=== PATIENT | male | born 1975 | race Hispanic/Latino ===

== ENCOUNTER 2017-02-05 10:08 | Emergency (ER) | payer SELFPAY ==
[2017-02-05 10:29] VITALS: BP 124/83
[2017-02-05 13:24] LABS: Bilirubin,Urine NEG (Negative); Blood,Urine LG (Negative); Ketones,Urine TR mg/dL (Negative); Leukocyte Esterase,Urine NEG (Negative); Nitrite,Urine NEG (Negative); Urobilinogen,Urine < 2.0 mg/dL (<2.0)
== END 2017-02-05 15:35 | disposition left against medical advice (07) ==
LOC: ED 10:08
DX: R10.30 Lower abdominal pain, unspecified (principal); Z53.21 Procedure and treatment not carried out due to patient leaving prior to being seen by health care provider
CPT/HCPCS: 81001

== ENCOUNTER 2020-03-25 03:17 | Emergency (ER) | payer MEDICAID, OTHER ==
[2020-03-25 04:23] LABS: Basophils # (Auto) 0.1 K/mm3 (0.0-0.1); Basophils % (Auto) 1.1 % (0.0-1.8); Eosinophils # (Auto) 0.1 K/mm3 (0.0-0.4); Eosinophils % (Auto) 1.4 % (0.0-4.3); Hematocrit 37.8 % (35.5-45.6); Hemoglobin 12.8 gm/dl (11.8-15.2); Lymphocytes # (Auto) 1.5 K/mm3 (1.2-5.4); Mean Corpuscular HGB Conc 34 % (32-34); Mean Corpuscular Volume 93 fl (84-94); Monocytes # (Auto) 0.9 K/mm3 (0.0-0.8); Monocytes % (Auto) 9.2 % (0.0-7.3); Platelet Count 268 K/mm3 (140-440); Red Blood Count 4.06 M/mm3 (3.65-5.03); Red Cell Distribution Width 14.2 % (13.2-15.2)
[2020-03-25 04:42] LABS: BUN/Creatinine Ratio 10; Blood Urea Nitrogen 10 mg/dL (9-20); Calcium 9.2 mg/dL (8.4-10.2); Hemolysis Index 33
[2020-03-25 04:44] LABS: Creatine Kinase MB 1.2 ng/mL (0.0-4.0)
[2020-03-25] MEDS ORDERED: SODIUM CHLORIDE 0.9% 1000 ML 1,000 ML ONE (04:52)
[2020-03-25] MEDS ORDERED: SODIUM CHLORIDE 0.9% 1000 ML 1,000 ML IV ONE (05:02)
--- NOTE | 2020-03-25 05:24 | Emergency Department Report ---
ED General Adult HPI - General Chief complaint: Hyperglycemia Stated complaint: HYPERGLYCEMIA Time Seen by Provider: 03/25/20 04:53 Source: patient, EMS Mode of arrival: Stretcher Limitations: No Limitations - History of Present Illness Initial comments: 44-year-old male with a new diagnosis of insulin-dependent diabetes 2 to 3 weeks early months ago while he was incarcerated presents emerged department complaining of a 1 to 2-day history of nausea associated with dizziness chills sweats headache and occasional blurred vision. Ports no chest pain or palpitations. No fevers, abdominal pain, vomiting, constipation, diarrhea, hemoptysis, hematemesis, hematochezia. No palpitations. Severity scale (0 -10): 0 - Related Data Home Medications Medication Instructions Recorded Confirmed Last Taken Insulin Glargine,Hum.rec.anlog 26 unit SQ DAILY 03/25/20 03/25/20 Unknown [Basaglar Kwikpen U-100] Insulin Regular, Human [Novolin R] 5 units SQ DAILY 03/25/20 03/25/20 Unknown Allergies Allergy/AdvReac Type Severity Reaction Status Date / Time No Known Allergies Allergy Verified 08/28/18 01:57 ED Review of Systems ROS: Stated complaint: HYPERGLYCEMIA Other details as noted in HPI Comment: All other systems reviewed and negative ED Past Medical Hx - Past Medical History Previous Medical History?: Yes Hx Diabetes: Yes (Newly Diagnosed) - Social History Smoking Status: Current Every Day Smoker - Medications Home Medications: Home Medications Medication Instructions Recorded Confirmed Last Taken Type Insulin Glargine,Hum.rec.anlog 26 unit SQ DAILY 03/25/20 03/25/20 Unknown History [Basaglar Kwikpen U-100] Insulin Regular, Human [Novolin R] 5 units SQ DAILY 03/25/20 03/25/20 Unknown History ED Physical Exam - General Limitations: No Limitations General appearance: alert, in no apparent distress - Head Head exam: Present: atraumatic, normocephalic - Eye Eye exam: Present: normal appearance, PERRL, EOMI. Absent: nystagmus, other Pupils: Present: normal accommodation - ENT ENT exam: Present: normal exam, normal orophraynx, mucous membranes moist, TM's normal bilaterally - Neck Neck exam: Present: normal inspection, tenderness, full ROM. Absent: lymphadenopathy, thyromegaly - Respiratory Respiratory exam: Present: normal lung sounds bilaterally. Absent: respiratory distress, wheezes, rales, chest wall tenderness, accessory muscle use - Cardiovascular Cardiovascular Exam: Present: regular rate, normal rhythm, normal heart sounds. Absent: bradycardia, tachycardia, systolic murmur, diastolic murmur, rubs, gallop - GI/Abdominal GI/Abdominal exam: Present: soft, normal bowel sounds. Absent: distended, tenderness, guarding - Rectal Rectal exam: Present: deferred - Extremities Exam Extremities exam: Present: normal inspection, normal capillary refill - Back Exam Back exam: Present: normal inspection. Absent: CVA tenderness (R), CVA tenderness (L) - Neurological Exam Neurological exam: Present: alert, oriented X3, CN II-XII intact, normal gait - Psychiatric Psychiatric exam: Present: normal affect, normal mood - Skin Skin exam: Present: warm, dry, intact, normal color. Absent: rash ED Course Vital Signs 03/25/20 03/25/20 03/25/20 03:42 04:03 04:35 Temperature 97.5 F L Pulse Rate 86 77 Respiratory 20 20 20 Rate Blood Pressure 112/71 Blood Pressure 111/72 [Right] O2 Sat by Pulse 96 96 97 Oximetry ED Medical Decision Making - Lab Data Result diagrams: 03/25/20 04:10 03/25/20 04:10 - Radiology Data Radiology results: [place] [address] Cat Scan Report Signed Patient: COLEMAN GORDON JR MR#: [id number] : 1975 Acct:[id number] Age/Sex: 44 / M ADM Date: 03/25/20 Loc: ED Attending Dr: Ordering Physician: YUMI JOAQUIN Date of Service: 03/25/20 Procedure(s): CT head/brain wo con Accession Number(s): [id number] cc: YUMI JOAQUIN Examination: CT of the head without contrast Clinical information: Headache. Dizziness. Comparison: None Technical: Multiple axial CT images of the head were obtained without intravenous contrast. Sagittal and coronal reformats were obtained. All CTs at this facility utilize dose reduction techniques including automated exposure control, iterative reconstruction and weight based dosing when appropriate to reduce patient radiation dose to as low as reasonable achievable. Findings: There is no CT evidence of acute intracranial hemorrhage or large territorial infarct. The ventricular system is normal in size. There is no evidence of mass effect or midline shift. No extra-axial fluid collections are identified. Evaluation of the calvarium demonstrates no evidence of acute bony abnormality. The visualized paranasal sinuses and mastoid air cells are clear Impression: 1. No CT evidence of acute intracranial process. Signer Name: Arabella Shepard MD Signed: 03/25/2020 5:30 AM Workstation Name: [id number] Transcribed By: EB Dictated By: Arabella Shepard MD Electronically Authenticated By: Arabella Shepard MD Signed Date/Time: 03/25/20529 DD/ 7 TD/TT: Critical care attestation.: If time is entered above; I have spent that time in minutes in the direct care of this critically ill patient, excluding procedure time. ED Disposition Clinical Impression: Hyperglycemia, Dizziness Disposition: DC-01 TO HOME OR SELFCARE Is pt being admited?: No Does the pt Need Aspirin: No Condition: Stable Instructions: Dizziness (ED), Lightheadedness (ED), Diabetic Hyperglycemia (ED), Dehydration (ED) Additional Instructions: Please be sure to follow-up with your primary care provider for further evaluation of your hypoglycemia. Please remember to hydrate as there was no evidence of dehydration with your examination Referrals: TRISTON MYERS MD [Primary Care Provider] - 3-5 Days JOSSIE CA MD [Staff Physician] - 3-5 Days
--- NOTE | 2020-03-25 05:34 | Cat Scan Report ---
Examination: CT of the head without contrast Clinical information: Headache. Dizziness. Comparison: None Technical: Multiple axial CT images of the head were obtained without intravenous contrast. Sagittal and coronal reformats were obtained. All CTs at this facility utilize dose reduction techniques inc luding automated exposure control, iterative reconstruction and weight based dosing when appropriate to reduce patient radiation dose to as low as reasonable achievable. Findings: There is no CT evidence of acute intracranial hemorrhage or large territorial infarct. The ventricular system is normal in size. There is no evidence of mass effect or midline shift. No extra- axial fluid collections are identified. Evaluation of the calvarium demonstrates no evidence of acute bony abnormality. The visualized parana erin sinuses and mastoid air cells are clear Impression: 1. No CT evidence of acute intracranial process. Signer Name: Arabella Shepard MD Signed: 03/25/2020 5:30 AM Workstation Name: [id number]
[2020-03-25 07:43] VITALS: BP 128/78
== END 2020-03-25 07:44 | disposition home or self-care (01) ==
LOC: ED 03:17
DX: E11.65 Type 2 diabetes mellitus with hyperglycemia (principal); R42 Dizziness and giddiness; F17.200 Nicotine dependence, unspecified, uncomplicated; Z79.4 Long term (current) use of insulin
CPT/HCPCS: 36415; 70450; 80048; 82550; 82553; 82805; 84484; 85025; 93005; 96360; 96361; 99284; J7030

== ENCOUNTER 2020-10-15 00:51 | Emergency (ER) | payer MEDICAID ==
[2020-10-15 01:37] VITALS: BP 104/78
[2020-10-15 02:36] LABS: Basophils # (Auto) 0.1 K/mm3 (0.0-0.1); Basophils % (Auto) 1.1 % (0.0-1.8); Eosinophils # (Auto) 0.4 K/mm3 (0.0-0.4); Eosinophils % (Auto) 2.8 % (0.0-4.3); Hematocrit 43.4 % (35.5-45.6); Hemoglobin 14.6 gm/dl (11.8-15.2); Lymphocytes # (Auto) 3.7 K/mm3 (1.2-5.4); Lymphocytes % (Auto) 29.7 % (13.4-35.0); Mean Corpuscular HGB Conc 34 % (32-34); Mean Corpuscular Volume 92 fl (84-94); Monocytes # (Auto) 1.5 K/mm3 (0.0-0.8); Monocytes % (Auto) 11.6 % (0.0-7.3); Platelet Count 271 K/mm3 (140-440); Red Blood Count 4.73 M/mm3 (3.65-5.03); Red Cell Distribution Width 13.3 % (13.2-15.2)
[2020-10-15 02:47] LABS: Alanine Aminotransferase 19 units/L (7-56); Albumin 4.3 g/dL (3.9-5); BUN/Creatinine Ratio 14; Blood Urea Nitrogen 14 mg/dL (9-20); Calcium 10.5 mg/dL (8.4-10.2); Hemolysis Index 12
[2020-10-15] MEDS ORDERED: KETOROLAC 30 MG/1 ML INJ IV ONE (03:02)
--- NOTE | 2020-10-15 04:27 | Emergency Department Report ---
ED Extremity Problem HPI - General Chief complaint: Extremity Injury, Lower Stated complaint: MUSCLE CRAMPS Source: patient Mode of arrival: Ambulatory Limitations: No Limitations - History of Present Illness Initial comments: Patient is a 44-year-old white male with history of sth-swrvfoz-yvpfwbuhe diabetes who presents to the ED with complaint of acute onset persistent interm ittent bilateral lower extremity muscle spasm for the last 2 days. Patient states that the pain is intermittent and is not triggered by anything because it happens even at rest. Patient denies dizziness, syncope, chest pain, shortness of breath, nausea and vomiting, fever, chills, traumatic injury, heavy lifting, back pain, dizziness or change in vision. MD Complaint: extremity pain (Bilateral lower extremity muscle spasm) -: Sudden, hour(s) (12) Location: bilateral lower extremity History of Same: Yes -: Yes myalgia, Yes arthralgia Severity scale (0 -10): 7 Quality: aching, sharp Consistency: intermittent Improves with: rest Worsens with: weight bearing, walking Associated Symptoms: denies other symptoms, myalgias, arthralgias. denies: chest pain, fever - Related Data Home Medications Medication Instructions Recorded Confirmed Last Taken Insulin Glargine,Hum.rec.anlog 26 unit SQ DAILY 03/25/20 03/25/20 Unknown [Basaglar Kwikpen U-100] Insulin Regular, Human [Novolin R] 5 units SQ DAILY 03/25/20 03/25/20 Unknown Previous Rx's Medication Instructions Recorded Last Taken Type Cyclobenzaprine [Flexeril] 10 mg PO TID PRN #15 tablet 10/15/20 Unknown Rx Ibuprofen [Motrin] 600 mg PO Q8H PRN #30 tablet 10/15/20 Unknown Rx Allergies Allergy/AdvReac Type Severity Reaction Status Date / Time No Known Allergies Allergy Verified 08/28/18 01:57 ED Review of Systems ROS: Stated complaint: MUSCLE CRAMPS Other details as noted in HPI Constitutional: denies: chills, fever Eyes: denies: eye pain, eye discharge, vision change ENT: denies: ear pain, throat pain Respiratory: denies: cough, shortness of breath, wheezing Cardiovascular: denies: chest pain, palpitations Endocrine: no symptoms reported Gastrointestinal: denies: abdominal pain, nausea, diarrhea Genitourinary: denies: urgency, dysuria Musculoskeletal: arthralgia (Bilateral lower extremity muscle spasm), myalgia. denies: back pain, joint swelling Skin: denies: rash, lesions Neurological: denies: headache, weakness, paresthesias Psychiatric: denies: anxiety, depression Hematological/Lymphatic: denies: easy bleeding, easy bruising ED Past Medical Hx - Past Medical History Previous Medical History?: Yes Hx Diabetes: Yes (Newly Diagnosed) - Surgical History Past Surgical History?: No - Social History Smoking Status: Current Every Day Smoker Substance Use Type: None - Medications Home Medications: Home Medications Medication Instructions Recorded Confirmed Last Taken Type Insulin Glargine,Hum.rec.anlog 26 unit SQ DAILY 03/25/20 03/25/20 Unknown History [Basaglar Kwikpen U-100] Insulin Regular, Human [Novolin R] 5 units SQ DAILY 03/25/20 03/25/20 Unknown History Cyclobenzaprine [Flexeril] 10 mg PO TID PRN #15 tablet 10/15/20 Unknown Rx Ibuprofen [Motrin] 600 mg PO Q8H PRN #30 tablet 10/15/20 Unknown Rx ED Physical Exam - General Limitations: No Limitations General appearance: alert, in no apparent distress - Head Head exam: Present: atraumatic, normocephalic, normal inspection - Eye Eye exam: Present: normal appearance, PERRL, EOMI Pupils: Present: normal accommodation - ENT ENT exam: Present: normal exam, normal orophraynx, mucous membranes moist, TM's normal bilaterally, normal external ear exam - Neck Neck exam: Present: normal inspection, full ROM - Respiratory Respiratory exam: Present: normal lung sounds bilaterally. Absent: respiratory distress, wheezes, rales, chest wall tenderness, accessory muscle use - Cardiovascular Cardiovascular Exam: Present: regular rate, normal rhythm, normal heart sounds. Absent: systolic murmur, diastolic murmur, rubs, gallop - GI/Abdominal GI/Abdominal exam: Present: soft, normal bowel sounds. Absent: distended, tenderness, guarding, hyperactive bowel sounds, hypoactive bowel sounds, organomegaly - Extremities Exam Extremities exam: Present: normal inspection, full ROM, normal capillary refill. Absent: tenderness - Back Exam Back exam: Present: normal inspection, full ROM. Absent: tenderness, CVA tenderness (R), muscle spasm, vertebral tenderness - Neurological Exam Neurological exam: Present: alert, oriented X3, CN II-XII intact, normal gait, reflexes normal - Psychiatric Psychiatric exam: Present: normal affect, normal mood - Skin Skin exam: Present: warm, dry, intact, normal color. Absent: rash ED Course Vital Signs 10/15/20 01:36 Temperature 97.9 F Pulse Rate 99 H Respiratory 20 Rate Blood Pressure 104/78 O2 Sat by Pulse 96 Oximetry ED Medical Decision Making - Lab Data Result diagrams: 10/15/20 02:01 10/15/20 02:01 - Medical Decision Making This is a 44-year-old white male with history of rsm-kntybjb-exxgvgvgh diabetes who presents to the ED with complaint of acute onset persistent intermittent bilateral lower extremity muscle spasm for the last 2 days. Patient states that the pain is intermittent and is not triggered by anything because it happens even at rest. In the ED, patient is alert and oriented x3 and is not in distress. Lab test results were reviewed and are all nonactionable. Patient was treated for pain in the ED and was discharged home on pain medications and muscle relaxants and advised follow-up with his primary care physician in 7 to 10 days for reevaluation. Return to the ED immediately if symptoms get worse. - Differential Diagnosis Muscle spasm; muscle strain; tendinitis; osteoarthritis Critical care attestation.: If time is entered above; I have spent that time in minutes in the direct care of this critically ill patient, excluding procedure time. ED Disposition Clinical Impression: Muscle spasms of both lower extremities Disposition: DC-01 TO HOME OR SELFCARE Is pt being admited?: No Does the pt Need Aspirin: No Condition: Stable Instructions: Muscle Cramps and Spasms, [id number] Additional Instructions: Lab test results were reviewed and are all nonactionable. Therefore take medications with food, drink plenty of fluids and follow-up with your primary care physician in 7 to 10 days for reevaluation. Return to the ED immediately if symptoms get worse. Prescriptions: Cyclobenzaprine [Flexeril] 10 mg PO TID PRN #15 tablet PRN Reason: Muscle Spasm Ibuprofen [Motrin] 600 mg PO Q8H PRN #30 tablet PRN Reason: Pain Referrals: [facility] [Provider Group] - 3-5 Days Time of Disposition: 04:31 Print Language: KHMER
[2020-10-15 04:33] LABS: Bilirubin,Urine NEG (Negative); Blood,Urine NEG (Negative); Color,Urine Yellow (Yellow); Protein,Urine <15 mg/dL mg/dL (Negative); RBC,Urine < 1.0 /HPF (0.0-6.0); Urobilinogen,Urine < 2.0 mg/dL (<2.0)
== END 2020-10-15 04:35 | disposition home or self-care (01) ==
LOC: ED 00:51
DX: M62.838 Other muscle spasm (principal); E11.9 Type 2 diabetes mellitus without complications; F17.200 Nicotine dependence, unspecified, uncomplicated; Z79.4 Long term (current) use of insulin; Z79.899 Other long term (current) drug therapy
CPT/HCPCS: 36415; 80053; 81001; 85025; 96374; 99284; J1885

== ENCOUNTER 2021-07-25 17:57 | Emergency (ER) | payer MEDICAID ==
[2021-07-25] MEDS ORDERED: HYDROcodone/ACETAMINOPHEN 5-325 MG TAB PO ONE (18:42)
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
[2021-07-25] MEDS ORDERED: IBUPROFEN 800 MG TAB PO STA (18:44)
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
[2021-07-25] MEDS ORDERED: SODIUM CHLORIDE 0.9% 1000 ML 1,000 ML IV ONE ×2 (19:47)
[2021-07-25] MEDS ORDERED: LACTATED RINGERS 3,000 ML IV ONE (20:06)
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
[2021-07-25] MEDS ORDERED: SODIUM CHLORIDE IRRI 500 ML 500 ML IR ONE (20:29)
--- NOTE | 2021-07-25 20:57 | XRay Report ---
RIGHT HAND 3 VIEW(S) INDICATION / CLINICAL INFORMATION: dog bite to right hand COMPARISON: None available. FINDINGS: BONES / JOINT(S): No acute fracture or subluxation. No significant arthritis. SOFT TISSUES: Small amount of soft tissue gas on the dorsum of the hand. No radiopaque foreign body. ADDITIONAL FINDINGS: None. Signer Name: Marcia Angeles MD Signed: 07/25/2021 8:53 PM Workstation Name: [id number]
[2021-07-25 21:04] LABS: Alanine Aminotransferase 37 units/L (7-56); BUN/Creatinine Ratio 13; Blood Urea Nitrogen 13 mg/dL (9-20); Calcium 9.2 mg/dL (8.4-10.2); Hemolysis Index 5
[2021-07-25 21:19] LABS: Basophils # (Auto) 0.1 K/mm3 (0.0-0.1); Basophils % (Auto) 1.1 % (0.0-1.8); Eosinophils # (Auto) 0.2 K/mm3 (0.0-0.4); Eosinophils % (Auto) 1.7 % (0.0-4.3); Hematocrit 38.6 % (35.5-45.6); Hemoglobin 13.1 gm/dl (11.8-15.2); Lymphocytes # (Auto) 1.5 K/mm3 (1.2-5.4); Lymphocytes % (Auto) 16.8 % (13.4-35.0); Mean Corpuscular HGB Conc 34 % (32-34); Mean Corpuscular Volume 96 fl (84-94); Monocytes % (Auto) 10.6 % (0.0-7.3); Platelet Count 243 K/mm3 (140-440); Red Blood Count 4.03 M/mm3 (3.65-5.03); Red Cell Distribution Width 13.5 % (13.2-15.2)
[2021-07-25] MEDS ORDERED: INSULIN REGULAR, HUMAN 100 UNITS/1 ML IV ONE ×2 (21:43→23:55)
[2021-07-25] MEDS ORDERED: AMOXICILLIN/K CLAV 875/125MG TAB PO ONE (22:30)
[2021-07-25] MEDS ORDERED: LACTATED RINGERS 1,000 ML IV ONE (22:57)
[2021-07-26 01:22] VITALS: BP 106/68
== END 2021-07-26 03:00 | disposition home or self-care (01) ==
LOC: ED 17:57
DX: S61.451A Open bite of right hand, initial encounter (principal); M79.672 Pain in left foot; E86.0 Dehydration; E10.65 Type 1 diabetes mellitus with hyperglycemia; F17.200 Nicotine dependence, unspecified, uncomplicated; W54.0XXA Bitten by dog, initial encounter; Y93.89 Activity, other specified; Y92.89 Other specified places as the place of occurrence of the external cause; Y99.8 Other external cause status
CPT/HCPCS: 36415; 80053; 82550; 82805; 82962; 83735; 85025; 96361; 96374; 99284; J1815

== ENCOUNTER 2022-02-10 06:19 | Emergency (ER) | payer MEDICAID ==
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
[2022-02-10] MEDS ORDERED: cefTRIAXone/NS 1 GM/50 ML 1 GM/50 ML BAG IV ONE (07:59)
[2022-02-10] MEDS ORDERED: SODIUM CHLORIDE 0.9% 1000 ML 1,000 ML IV ONE (07:59)
[2022-02-10 08:37] LABS: Hematocrit 35.7 % (35.5-45.6); Hemoglobin 11.6 gm/dl (11.8-15.2); Mean Corpuscular HGB Conc 32 % (32-34); Mean Corpuscular Volume 97 fl (84-94); Platelet Count 366 K/mm3 (140-440); Red Blood Count 3.67 M/mm3 (3.65-5.03); Red Cell Distribution Width 14.6 % (13.2-15.2)
[2022-02-10 09:00] LABS: Alanine Aminotransferase 25 units/L (7-56); Albumin 3.7 g/dL (3.9-5); BUN/Creatinine Ratio 14; Blood Urea Nitrogen 10 mg/dL (9-20); Hemolysis Index 2
[2022-02-10] MEDS ORDERED: INSULIN REGULAR, HUMAN 100 UNITS/1 ML IV ONE (09:41)
[2022-02-10 12:14] VITALS: BP 134/86
== END 2022-02-10 12:15 | disposition home or self-care (01) ==
LOC: ED 06:19
DX: I87.332 Chronic venous hypertension (idiopathic) with ulcer and inflammation of left lower extremity (principal); L97.929 Non-pressure chronic ulcer of unspecified part of left lower leg with unspecified severity
CPT/HCPCS: 36415; 80053; 82140; 82962; 85027; 96365; 96375; 99284; J0696; J7030; Q0162; Q9967; J1815